=== PATIENT | male | born 1940 | race Caucasian/White ===

== ENCOUNTER → 2017-10-21 | Outpatient (CLI) | payer MEDICARE ==
[~2017-10-21] MED LIST: OMNIPAQUE 350 MG/ML, 100ML BOTTLE ONE
== END | disposition home or self-care (01) ==
LOC: CFH 10:16
PROVIDERS: ATTEND Family Medicine
DX: J18.9 Pneumonia, unspecified organism (principal); M54.6 Pain in thoracic spine; M47.896 Other spondylosis, lumbar region; M25.511 Pain in right shoulder; M25.512 Pain in left shoulder
CPT/HCPCS: 71046; 71275; 72072; 72100; 73030; Q9967

== ENCOUNTER → 2018-01-13 | Outpatient (CLI) | payer MEDICARE ==
[2018-01-13 12:53] LABS: INTERNATIONAL NORMALIZED RATIO 1.18 (0.93-1.1); PARTIAL THROMBOPLASTIN TIME 31 Seconds (25-31); PROTHROMBIN TIME 12.1 Seconds (9.6-11.5)
[2018-01-13 13:24] LABS: BASOPHILS # (AUTO) 0.03 x10^3/uL (0-0.1); BASOPHILS % (AUTO) 0 % (0-1); EOSINOPHILS % (AUTO) 1 % (1-7); LYMPHOCYTES # (AUTO) 1.49 x10^3/uL (1-3.4); LYMPHOCYTES % (AUTO) 13 % (22-44); MD SCAN; MEAN CORPUSCULAR HEMOGLOBIN 30.4 pg (27.5-34.5); MEAN CORPUSCULAR HGB CONC 32.6 g/dL (33.2-36.2); MEAN CORPUSCULAR VOLUME 93.4 fL (81-97); MEAN PLATELET VOLUME 13.5 fL (7.4-10.4); MONOCYTES # (AUTO) 0.62 x10^3/uL (0.2-0.8); MONOCYTES % (AUTO) 6 % (2-9); NEUTROPHILS # (AUTO) 8.97 x10^3/uL (1.8-6.8); NEUTROPHILS % (AUTO) 80 % (42-75); PLATELET COUNT 146 x10^3/uL (130-400); RED BLOOD COUNT 4.71 x10^6/uL (4.38-5.82); RED CELL DISTRIBUTION WIDTH 15.6 % (9.4-14.8)
[2018-01-13 15:08] LABS: ADP CARTRIDGE 84 SECONDS (64-123); PLATELET (PFA) 146 x10^3/uL (130-400)
== END | disposition home or self-care (01) ==
LOC: CFH 10:38
PROVIDERS: ATTEND Family Medicine
DX: M19.012 Primary osteoarthritis, left shoulder (principal); M62.50 Muscle wasting and atrophy, not elsewhere classified, unspecified site; M25.412 Effusion, left shoulder
CPT/HCPCS: 36415; 85014; 85025; 85049; 85576; 85610; 85730